=== PATIENT | male | born 1965 | race Caucasian/White ===

== ENCOUNTER 2024-02-03 19:36 | Emergency (ER) | payer SELFPAY ==
[2024-02-03] MEDS: methylPREDNISolone Sodium Succinate 125 MG/2 ML SDV IVPUSH ONE (19:44)
[2024-02-03] MEDS: Sodium Chloride 0.9% 10 ML Syringe FLUSH PRN (19:45)
== END 2024-02-03 20:06 | disposition home or self-care (01) ==
LOC: FB.ED 19:36
DX: S00.261A Insect bite (nonvenomous) of right eyelid and periocular area, initial encounter (principal); S00.462A Insect bite (nonvenomous) of left ear, initial encounter; Z88.5 Allergy status to narcotic agent; Z88.0 Allergy status to penicillin; Z91.030 Bee allergy status; W57.XXXA Bitten or stung by nonvenomous insect and other nonvenomous arthropods, initial encounter
CPT/HCPCS: 96374; 99285; J2919; J3490